=== PATIENT | female | born 1985 | race Caucasian/White ===

== ENCOUNTER 2017-09-22 15:17 | Emergency (ER) | payer OTHER ==
[2017-09-22 15:41] VITALS: RESP 16; TEMP 100.8; O2SAT 95
[2017-09-22] MEDS ORDERED: ACETAMINOPHEN 500 MG TAB PO ONE (15:42)
[2017-09-22] MEDS ORDERED: NS 1,000 ML IV ONE (16:16)
--- NOTE | 2017-09-22 16:16 | EDPHY ---
H & P Stated Complaint: h/a, cough, fever at home, fatigue, body aches Time Seen by Provider: 09/22/17 16:12 HPI/ROS: CHIEF COMPLAINT: Headache, cough, fever, fatigue, body aches HISTORY OF PRESENT ILLNESS: The patient is a 32 y/o female complaining of a cough, sore throat, fatigue, and body aches for the past week. She has been coughing up green sputum. Last night her symptoms worsened and she began to have a fever and headache. She is also complaining of chest pain, primarily when she coughs or breathes in. She also has right-sided back pain and diarrhea. She has been taking dayquil for her symptoms, with little relief. Denies having a flu vaccination this year. No chills, palpitations, vomiting, urinary complaints, lightheadedness. REVIEW OF SYSTEMS: Aside from elements discussed in the HPI, a comprehensive 10-point review of systems was reviewed and is negative. PAST MEDICAL HISTORY: Denies SOCIAL HISTORY: Friend at bedside, alcohol use, no tobacco or marijuana use VITAL SIGNS: Temp: 38.2, HR: 114, BP: 121/84, others reviewed by me as normal GENERAL: Nasal congestion. Well-developed, well-nourished, resting comfortably in no respiratory distress. HEENT: Atraumatic. Eyes: No icterus, no injection. Mouth: moist mucous membranes. Pharyngeal erythema. No exudates or lesions. Neck: supple with no adenopathy. LUNGS: Cough with wheezes, rhonchi or rales. CARDIAC: Tachycardic, regular rhythm, no rubs, murmurs or gallops. ABDOMEN: Soft, nontender, nondistended, bowel sounds normal. BACK: No CVA tenderness. No flank tenderness EXTREMITIES: No trauma. No edema. Range of motion is normal throughout. NEURO: Alert and oriented, grossly nonfocal. SKIN: Warm and dry, no rash. PSYCHIATRIC: Normal mentation, no agitation. Portions of this note were transcribed by a esthetician and manager medical spa. I personally performed a history, physical exam, medical decision making, and confirmed accuracy of information the transcribed note. - Personal History LMP (Females 10-55): 8-14 Days Ago Current Tetanus/Diphtheria Vaccine: Unsure Current Tetanus Diphtheria and Acellular Pertussis (TDAP): Unsure - Medical/Surgical History Hx Asthma: No Hx Chronic Respiratory Disease: No Hx Diabetes: No Hx Cardiac Disease: No Hx Renal Disease: No Hx Cirrhosis: No Hx Alcoholism: No Hx HIV/AIDS: No Hx Splenectomy or Spleen Trauma: No Other PMH: complicated --skull fx-mom had eclampsia- - Social History Smoking Status: Never smoked Constitutional: Initial Vital Signs Temperature (C) 38.2 C 09/22/17 15:38 Heart Rate 114 H 09/22/17 15:38 Respiratory Rate 16 09/22/17 15:38 Blood Pressure 121/84 H 09/22/17 15:38 O2 Sat (%) 95 09/22/17 15:38 O2 Delivery Mode Room Air Allergies/Adverse Reactions: No Known Allergies Allergy (Unverified 09/22/17 15:37) Home Medications: Medication Instructions Recorded Oseltamivir Phosphate [Tamiflu 75 75 mg PO BID #10 cap 09/22/17 mg (*)] Medical Decision Making ED Course/Re-evaluation: The patient is a 32 y/o female presenting with a URI sympoms and sore throat/ congestions for one week. Now wiht fever, headache, body aches. On exam she is tachycardic. IV fluids, antipyretics given. 1800: Influenza A positive. Better post interventions. Not hypoxic. Strep negative. NO evidence of sepsis. Reassessed patient and discussed flu results. Will place on tamiflu as significant fever, headache, and bodyaches only began yesterday. Return precautions provided; patient is comfortable with this plan. Differential Diagnosis: Diff dx considered included bronchitis, pneumonia, influenza, viral syndrome, strep throat. - Data Points Laboratory Results: Laboratory Results 09/22/17 16:34 09/22/17 16:34 Medications Given: Discontinued Medications Acetaminophen (Tylenol) 1,000 mg PO EDNOW ONE Stop: 09/22/17 15:43 Last Admin: 09/22/17 16:05 Dose: 1,000 mg Sodium Chloride (Ns) 1,000 mls @ 0 mls/hr IV ONCE ONE; Wide Open PRN Reason: Protocol Stop: 09/22/17 16:17 Last Admin: 09/22/17 16:26 Dose: 1,000 mls Ketorolac Tromethamine (Toradol) 15 mg IVP ONCE ONE Stop: 09/22/17 16:29 Last Admin: 09/22/17 17:02 Dose: 15 mg Oseltamivir Phosphate (Tamiflu) 75 mg PO EDNOW ONE Stop: 09/22/17 18:03 Last Admin: 09/22/17 18:10 Dose: 75 mg Departure - Departure Disposition: Home, Routine, Self-Care Clinical Impression: Influenza A Condition: Good Instructions: Influenza (ED) Additional Instructions: 1. I recommend Ibuprofen (Motrin, Advil) or Naproxen Sodium (Aleve) for pain and anti-inflammatory effects. You may take either one, but do not take both. Your dose is: Ibuprofen 600 mg every 6-8 hours with food. OR Naproxen Sodium (Aleve) 220 mg every 12 hours. 2. Increase fluid intake as much as tolerated. 3. Take Tamiflu as prescribed. 4. Follow up with primary care physician in 3-4 days if not improving. 5. Return to the Emergency Department for uncontrollable fever, shortness of breath, or other worsening of condition. Referrals: [facility] [Other] - As per Instructions Prescriptions: Oseltamivir Phosphate [Tamiflu 75 mg (*)] 75 mg PO BID #10 cap Report Scribed for: Elayne Guerin Report Scribed by: Althea Albright Date of Report: 09/22/17 Time of Report: 16:13
[2017-09-22] MEDS ORDERED: KETOROLAC 15 MG/1 ML SDV IVP ONE (16:28)
[2017-09-22 16:49] LABS: % IMMATURE GRANULYOCYTES 0.1 % (0.0-1.1); ABSOLUTE IMMATURE GRANULOCYTES 0.01 10^3/uL (0.00-0.10); ADD DIFF? NO; ADD MORPH? NO; ADD SCAN? NO; ATYPICAL LYMPHOCYTE FLAG 0 (0-99); FRAGMENT RBC FLAG 0 (0-99); HEMOGLOBIN 14.7 g/dL (12.6-16.3); LEFT SHIFT FLG 0 (0-99); LIPEMIA HEMOLYSIS FLAG 90 (0-99); MEAN CELL HEMOGLOBIN 30.8 pg (27.9-34.1); MEAN CELL VOLUME 88.1 fL (81.5-99.8); MEAN PLATELET VOLUME 12.1 fL (8.7-11.7); PLATELET CLUMPS FLAG 20 (0-99); PLATELET COUNT 175 10^3/uL (150-400); RED BLOOD CELL COUNT 4.77 10^6/uL (4.18-5.33); RED CELL DISTRIBUTION WIDTH 13.2 % (11.5-15.2)
[2017-09-22 17:02] LABS: ALANINE AMINOTRANSFERASE 46 IU/L (9-52); ALBUMIN 4.1 g/dL (3.5-5.0); ALKALINE PHOSPHATASE 60 IU/L (38-126); ANION GAP 8 mEq/L (8-16); ASPARTATE AMINOTRANSFERASE 33 IU/L (14-46); BILIRUBIN,TOTAL 0.4 mg/dL (0.1-1.4); BILIRUBIN-CONJUGATED 0.1 mg/dL (0.0-0.5); BILIRUBIN-UNCONJUGATED 0.3 mg/dL (0.0-1.1); CARBON DIOXIDE 22 mEq/l (22-31); CHLORIDE 105 mEq/L (97-110); CREATININE 0.8 mg/dL (0.6-1.0); GLOMERULAR FILTRATION RATE > 60; GLUCOSE 107 mg/dL (70-100); POTASSIUM 3.7 mEq/L (3.5-5.2); SODIUM 135 mEq/L (134-144)
[2017-09-22] MEDS ORDERED: OSELTAMIVIR PHOSPHATE 75 MG CAP PO ONE (18:02)
[2017-09-22 18:36] VITALS: BP 104/66; PULSE 82
== END 2017-09-22 18:36 | disposition home or self-care (01) ==
DX: J10.1 Influenza due to other identified influenza virus with other respiratory manifestations (principal); E86.9 Volume depletion, unspecified
CPT/HCPCS: 96374; J1885